=== PATIENT | female | born 1990 | race African-American/Black ===

== ENCOUNTER 2021-07-07 08:01 | Emergency (ER) | payer OTHER ==
[~2021-07-07] VITALS: Ht 162.6 cm; Wt 78.0 kg
[2021-07-07] MEDS ORDERED: FAMOTIDINE20 MG PO (09:01)
[2021-07-07] MEDS ORDERED: IBUPROFEN600 MG PO (09:01)
== END 2021-07-07 09:15 | disposition home or self-care (01) ==
LOC: FSED 08:47
DX: R07.89 Other chest pain (principal); K21.9 Gastro-esophageal reflux disease without esophagitis; M54.2 Cervicalgia; F17.210 Nicotine dependence, cigarettes, uncomplicated
CPT/HCPCS: 99282

== ENCOUNTER 2021-08-26 10:06 | Emergency (ER) | payer OTHER ==
[~2021-08-26] VITALS: Ht 162.6 cm; Wt 80.3 kg
[~2021-08-26 10:06] MED LIST: FAMOTIDINE20 MG PO; IBUPROFEN600 MG PO
[2021-08-26] MEDS ORDERED: CYCLOBENZAPRINE5 MG PO (11:39)
[2021-08-26] MEDS ORDERED: PREVACID30 M1 PO (11:39)
== END 2021-08-26 11:47 | disposition home or self-care (01) ==
LOC: FSED 10:36
DX: R07.89 Other chest pain (principal); F41.9 Anxiety disorder, unspecified; F17.210 Nicotine dependence, cigarettes, uncomplicated
CPT/HCPCS: 71045; 80053; 82553; 84484; 85025; 85379; 93005; 99284

== ENCOUNTER 2021-10-11 16:33 | Emergency (ER) | payer OTHER ==
[~2021-10-11] VITALS: Ht 162.6 cm; Wt 79.4 kg
[~2021-10-11 16:33] MED LIST changes: +CYCLOBENZAPRINE5 MG PO; +PREVACID30 M1 PO
[2021-10-11] MEDS ORDERED: SODIUM CHLORIDE 0.9% 1000ML 1,000 ML IV STA (17:03)
[2021-10-11] MEDS ORDERED: MAALOX MAXIMUM355 ML PO (17:09)
[2021-10-11] MEDS ORDERED: FAMOTIDINE20 MG PO (17:09)
[2021-10-11] MEDS ORDERED: ONDANSETRON ODT4 MG PO (17:09)
[2021-10-11] MEDS ORDERED: ONDANSETRON HCL INJ 2MG/ML 2ML 2 MG/ML VIAL ONE (17:15)
[2021-10-11] MEDS ORDERED: FAMOTIDINE 20 MG/2 ML VIAL IV ONE (17:15)
[2021-10-11] MEDS ORDERED: ONDANSETRON HCL INJ 2MG/ML 2ML 2 MG/ML VIAL IV ONE (17:15)
[2021-10-11] MEDS ORDERED: SODIUM CHLORIDE 0.9% 1000ML 1,000 ML ONE (17:15)
== END 2021-10-11 18:00 | disposition home or self-care (01) ==
LOC: FSED 16:50
DX: R11.2 Nausea with vomiting, unspecified (principal); K29.20 Alcoholic gastritis without bleeding; K52.9 Noninfective gastroenteritis and colitis, unspecified; E86.0 Dehydration; K21.9 Gastro-esophageal reflux disease without esophagitis; F41.9 Anxiety disorder, unspecified
CPT/HCPCS: 80053; 81003; 81025; 85025; 96374; 96376; 99283; J2405; J7030

== ENCOUNTER 2021-11-01 07:58 | Emergency (ER) | payer OTHER ==
[~2021-11-01] VITALS: Ht 162.6 cm; Wt 79.9 kg
[~2021-11-01 07:58] MED LIST changes: +MAALOX MAXIMUM355 ML PO; +ONDANSETRON ODT4 MG PO
[2021-11-01] MEDS ORDERED: BACTRIM DS TAB1 EACH PO (08:26)
[2021-11-01] MEDS ORDERED: TIZANIDINE HCL2 MG (08:31)
== END 2021-11-01 08:34 | disposition home or self-care (01) ==
LOC: FSED 08:17
DX: N39.0 Urinary tract infection, site not specified (principal); R30.0 Dysuria
CPT/HCPCS: 81003; 81025; 99283

== ENCOUNTER 2022-01-01 12:01 | Emergency (ER) | payer OTHER ==
[~2022-01-01] VITALS: Ht 152.4 cm; Wt 84.1 kg
[~2022-01-01 12:01] MED LIST changes: +BACTRIM DS TAB1 EACH PO; +TIZANIDINE HCL2 MG
[2022-01-01] MEDS ORDERED: ONDANSETRON HCL 4 MG ORAL DISINTEGRATING TAB PO ONE (12:30)
[2022-01-01] MEDS ORDERED: ONDANSETRON ODT4 MG PO (12:31)
[2022-01-01] MEDS ORDERED: MUCINEX DM ER1 EACH PO (12:31)
[2022-01-01] MEDS ORDERED: ZYRTEC-D TABLE1 EACH PO (12:46)
== END 2022-01-01 13:07 | disposition home or self-care (01) ==
LOC: FSED 12:14
DX: J06.9 Acute upper respiratory infection, unspecified (principal); R11.0 Nausea; F17.290 Nicotine dependence, other tobacco product, uncomplicated; F12.90 Cannabis use, unspecified, uncomplicated; Z71.89 Other specified counseling; Z88.1 Allergy status to other antibiotic agents; Z88.0 Allergy status to penicillin
CPT/HCPCS: 83518; 87400; 99283; Q0162

== ENCOUNTER 2022-02-04 09:11 | Emergency (ER) | payer OTHER ==
[~2022-02-04] VITALS: Ht 162.6 cm; Wt 80.7 kg
[~2022-02-04 09:11] MED LIST changes: +MUCINEX DM ER1 EACH PO; +ZYRTEC-D TABLE1 EACH PO
[2022-02-04] MEDS ORDERED: ONDANSETRON HCL INJ 2MG/ML 2ML 2 MG/ML VIAL IV STA (09:39)
[2022-02-04] MEDS ORDERED: KETOROLAC TROMETHAMINE 30 MG/ML VIAL IV STA (09:39)
[2022-02-04] MEDS ORDERED: DIPHENHYDRAMINE HCL INJ 50 MG/ML VIAL IV ONE (09:45)
[2022-02-04] MEDS ORDERED: SODIUM CHLORIDE 0.9% 1000ML 1,000 ML ONE (09:57)
[2022-02-04] MEDS ORDERED: SODIUM CHLORIDE 0.9% 1000ML 1,000 ML IV ONE (10:00)
[2022-02-04] MEDS ORDERED: FIORICET 50-301 EACH PO (11:01)
[2022-02-04] MEDS ORDERED: BACTRIM DS TAB1 EACH PO (11:04)
== END 2022-02-04 11:26 | disposition home or self-care (01) ==
LOC: FSED 09:40
DX: R51.9 Headache, unspecified (principal); D32.9 Benign neoplasm of meninges, unspecified
CPT/HCPCS: 70450; 80053; 81003; 81025; 85025; 99284; J1885; J2405; J7030

== ENCOUNTER 2022-04-11 07:51 | Emergency (ER) | payer OTHER ==
[~2022-04-11] VITALS: Ht 162.6 cm; Wt 85.3 kg
[~2022-04-11 07:51] MED LIST changes: +FIORICET 50-301 EACH PO
[2022-04-11] MEDS ORDERED: IBUPROFEN 600 MG TAB PO STA (08:13)
[2022-04-11] MEDS ORDERED: IBUPROFEN 600 MG TAB ONE (08:20)
[2022-04-11] MEDS ORDERED: NAPROSYN500 MG PO (08:35)
== END 2022-04-11 08:55 | disposition home or self-care (01) ==
LOC: FSED 07:56
DX: M25.562 Pain in left knee (principal); Y93.02 Activity, running
CPT/HCPCS: 81025; 99283

== ENCOUNTER 2022-04-17 11:11 | Emergency (ER) | payer OTHER ==
[~2022-04-17] VITALS: Ht 162.6 cm; Wt 86.2 kg
[~2022-04-17 11:11] MED LIST changes: +NAPROSYN500 MG PO
[2022-04-17] MEDS ORDERED: BACTRIM 400-801 EACH PO ×2 (11:32→11:37)
[2022-04-17] MEDS ORDERED: IBUPROFEN200 MG PO ×2 (11:32→11:37)
== END 2022-04-17 11:50 | disposition home or self-care (01) ==
LOC: FSED 11:21
DX: R30.0 Dysuria (principal); N39.0 Urinary tract infection, site not specified; F17.200 Nicotine dependence, unspecified, uncomplicated
CPT/HCPCS: 81003; 99283

== ENCOUNTER 2022-08-21 08:12 | Emergency (ER) | payer OTHER ==
[~2022-08-21] VITALS: Ht 162.6 cm; Wt 86.2 kg
[~2022-08-21 08:12] MED LIST changes: +BACTRIM 400-801 EACH PO; +IBUPROFEN200 MG PO
[2022-08-21] MEDS ORDERED: PYRIDIUM100 MG PO (08:51)
[2022-08-21] MEDS ORDERED: MACROBID 100 M100 MG PO (08:51)
== END 2022-08-21 09:07 | disposition home or self-care (01) ==
LOC: FSED 08:32
DX: R30.0 Dysuria (principal); N30.00 Acute cystitis without hematuria; F17.210 Nicotine dependence, cigarettes, uncomplicated
CPT/HCPCS: 81003; 81025; 99282